=== PATIENT | female | born 1990 | race Caucasian/White ===

== ENCOUNTER 2021-09-14 14:14 | Outpatient (REF) | payer MEDICARE, MEDICAID, SELFPAY | END 2021-09-14 14:15 | disposition home or self-care (01) | LOC: HO.LAB 14:14 | PROVIDERS: PCP Family Medicine; Visit Provider Anesthesiology | DX: Q07.00 Arnold-Chiari syndrome without spina bifida or hydrocephalus (principal); G97.1 Other reaction to spinal and lumbar puncture; G89.4 Chronic pain syndrome; G50.0 Trigeminal neuralgia; R51.9 Headache, unspecified | CPT/HCPCS: 99202 ==